=== PATIENT | female | born 1985 | race Caucasian/White ===

== ENCOUNTER 2018-03-05 17:24 | Emergency (ER) | payer BC ==
[2018-03-05] MEDS ORDERED: Albuterol-Ipratrop 3 mg / 0.5 (3 ml) UD IH STA (17:56)
[2018-03-05] MEDS ORDERED: Promethazine/Cod 6.25mg-10mg/5ml Syr UD PO STA (17:56)
--- NOTE | 2018-03-05 18:03 | ED PDOC ---
HPI: CCC, URI, Sore Throat Time Seen by Provider: 03/05/18 17:47 Chief Complaint (Nursing): Cough, Cold, Congestion History Per: Patient Onset/Duration Of Symptoms: Days (6) Current Symptoms Are (Timing): Still Present Location Of Pain: Throat Associated Symptoms: Sore Throat, Cough, Sputum. denies: Fever Severity: Moderate Additional Complaint(s): Cough productive green sputum x 1 week. Seen by PMD and started on antibiotics as well as PO steroids. Cough persists as well as pain left side when coughing. Denies fever. Past Medical History Vital Signs: Last Vital Signs Temp 98.6 F 03/05/18 17:37 Pulse 93 H 03/05/18 17:37 Resp 16 03/05/18 17:37 BP 146/96 H 03/05/18 17:37 Pulse Ox 97 03/05/18 17:37 - Medical History PMH: Asthma - Family History Family History: States: Unknown Family Hx - Home Medications Home Medications: Ambulatory Orders Medication Instructions Recorded Acetaminophen with Codeine 1 tab PO Q6 PRN #6 tab 02/13/14 [Tylenol with Codeine No. 3 300 mg-30 mg] Penicillin V Potassium 250 mg PO Q6 #28 tab 02/13/14 Albuterol 0.083% [Albuterol 3 ml IH Q8 #1 neb 03/05/18 Sulfate 3 Ml] Non-Formulary 1 ea .ROUTE Q6 #1 ea 03/05/18 Promethazine/Codeine 5 ml PO Q8 #60 ml 03/05/18 [Codeine/Promethazine 10 MG/5 Ml-6.25 MG/5 Ml] - Allergies Allergies/Adverse Reactions: Allergies Allergy/AdvReac Type Severity Reaction Status Date / Time oseltamivir [From Tamiflu] Allergy SHORTNESS Verified 03/05/18 17:36 OF BREATH Review of Systems ROS Statement: Except As Marked, All Systems Reviewed And Found Negative Respiratory: Positive for: Cough, Shortness of Breath, Wheezing Physical Exam - Reviewed Nursing Documentation Reviewed: Yes Vital Signs Reviewed: Yes - Physical Exam Appears: Positive for: Non-toxic, No Acute Distress Head Exam: Positive for: ATRAUMATIC, NORMAL INSPECTION, NORMOCEPHALIC Skin: Positive for: Normal Color, Warm, DRY Eye Exam: Positive for: EOMI, Normal appearance, PERRL ENT: Positive for: Normal ENT Inspection Neck: Positive for: Normal, Painless ROM Cardiovascular/Chest: Positive for: Regular Rate, Rhythm Respiratory: Positive for: Rhonchi, Wheezing. Negative for: Respiratory Distress Gastrointestinal/Abdominal: Positive for: Normal Exam, Soft Back: Positive for: Normal Inspection Extremity: Positive for: Normal ROM Neurologic/Psych: Positive for: Alert, Oriented - ECG O2 Sat by Pulse Oximetry: 97 - Progress Re-evaluation Time: 19:47 Condition: Improved Disposition - Clinical Impression Clinical Impression: Bronchitis - Patient ED Disposition Is Patient to be Admitted: No Counseled Patient/Family Regarding: Studies Performed, Diagnosis, Need For Followup, Rx Given - Disposition Referrals: [facility] [Outside] Disposition: Routine/Home Disposition Time: 19:47 Condition: FAIR Prescriptions: Albuterol 0.083% [Albuterol Sulfate 3 Ml] 3 ml IH Q8 #1 neb Non-Formulary 1 ea .ROUTE Q6 #1 ea Promethazine/Codeine [Codeine/Promethazine 10 MG/5 Ml-6.25 MG/5 Ml] 5 ml PO Q8 #60 ml Instructions: Acute Bronchitis Forms: [employer] (Ind[place]ian)
[2018-03-05] MEDS ORDERED: Promethazine/Cod 6.25mg-10mg/5ml Syr UD ONE (18:22)
[2018-03-05] MEDS ORDERED: Albuterol-Ipratrop 3 mg / 0.5 (3 ml) UD ONE (18:23)
[2018-03-05 20:06] VITALS: BP 135/75; PULSE 88; RESP 20; TEMP 97.9; O2SAT 94
--- NOTE | 2018-03-06 08:06 | RAD ---
Date of service: 03/05/2018 HISTORY: cough COMPARISON: No prior. TECHNIQUE: Chest PA and lateral FINDINGS: LUNGS: No active pulmonary disease. Breast tissue overlap at the bases accentuates bronchovascular markings somewhat in the frontal view only.. PLEURA: No significant pleural effusion identified. No pneumothorax apparent. CARDIOVASCULAR: No aortic atherosclerotic calcification present OSSEOUS STRUCTURES: No significant abnormalities. VISUALIZED UPPER ABDOMEN: Normal. OTHER FINDINGS: None. IMPRESSION: No acute cardiopulmonary disease appreciated.
== END 2018-03-05 20:06 | disposition home or self-care (01) ==
LOC: H.ER 17:24
DX: J40 Bronchitis, not specified as acute or chronic (principal)